=== PATIENT | female | born 1995 | race Caucasian/White ===

== ENCOUNTER 2018-12-09 18:04 | Emergency (ER) | payer OTHER ==
[2018-12-09 19:20] LABS: HIV (1/2) Antibody/Antigen Non-Reactive (NonReactive); HIV 1/2 INDEX 0.18 S/CO (<1.00); Hep C IgG Ab Non-Reactive (NonReactive); Hep C Index 0.21 S/CO (0-0.79)
[2018-12-09 20:48] LABS: HBSAB Concentration 11.45 mIU/mL
== END 2018-12-09 18:38 | disposition home or self-care (01) ==
LOC: ERS 18:04
DX: Z77.21 Contact with and (suspected) exposure to potentially hazardous body fluids (principal)
CPT/HCPCS: 36415; 82627; 83036; 83498; 84146; 84270; 84403; 84443; 86706; 86803; 87389; 99283

== ENCOUNTER 2019-04-08 12:29 | Outpatient (CLI) | payer OTHER ==
[2019-04-08 13:34] LABS: BHCG - Serum Negative (NEGATIVE); Pregs Control Background? CLEAR/WHITE (CLR/WHITE); Pregs Control Bar Appear? YES (CONTROL BAR)
[2019-04-08 13:35] LABS: Follow-up Chemistry Comp? YES
--- NOTE | 2019-04-08 14:16 | RAD ---
HYSTEROSALPINGOGRAM: HISTORY: Female with infertility associated with an ovulation. TECHNIQUE: The patient was counseled on the risks associated with an HSG prior to the examination. Confirmation of a negative with a negative serum exam. The patient completed her menstrual period on April 06, 2019. The patient is having no active bleeding prior to initiation of the HSG. The patient was then put in lithotomy position. A small speculum was placed. The cervix was identified. The cervix was cleansed with Betadine solution. Utilizing the sterile plastic probe, mult iple attempts were utilized to probe the endocervical canal. Approximately, less than 1 cm of the probe could be advanced into the endocervical canal. Multiple attempts were made to pass a catheter t hrough the endocervical canal into the endometrial canal that proved to be unsuccessful. There is some mild scarring seen along the external os collapsing the external os opening. FINDINGS: There are small phleboliths seen within lower left hemipelvis. There is a moderate amount of retained stool seen within the rectum and visualized colon. No acute osseous abnormality is evident. IMPRESSION: Aborted hysterosalpingogram. The HSG catheter could not be passed through the endocervical canal. Fin dings are concerning for cervical stenosis. The patient was counseled findings prior to leaving the radiology department. Transcribed Date/Time: 04/08/2019 2:40 PM
[2019-04-08] MEDS ORDERED: Iopamidol 300 61% 30 ML VIAL ONE (16:02)
== END 2019-04-08 12:30 | disposition home or self-care (01) ==
LOC: RAD 12:29
PROVIDERS: ATTEND Obstetrics & Gynecology
DX: N97.0 Female infertility associated with anovulation (principal)
CPT/HCPCS: 36415; 58340; 74740; 84703; Q9967

== ENCOUNTER 2019-04-11 10:28 | Outpatient (CLI) | payer OTHER ==
[2019-04-11] MEDS ORDERED: Iopamidol 300 61% 50 ML VIAL FS ONE (10:31)
[2019-04-11 11:38] LABS: BHCG - Serum Negative (NEGATIVE); Pregs Control Background? CLEAR/WHITE (CLR/WHITE); Pregs Control Bar Appear? YES (CONTROL BAR)
[2019-04-11 11:42] LABS: Follow-up Chemistry Comp? YES
--- NOTE | 2019-04-11 13:29 | RAD ---
Hysterosalpingogram HISTORY: Infertility. FINDINGS: After expanded procedure and answering all questions, uterine cervix was carefully exposed and prepped. HSG catheter was carefully placed and balloon inflated. Small amount of radiopaque contrast was carefully instilled into the uterine cavity with normal conto ur. Each fallopian tube opacified immediately with quick spill of contrast from each fallopian tube. Excess contrast was aspirated and catheter removed. Patient tolerated the procedure well and was dism issed in good condition. IMPRESSION: Patent bilateral fallopian tubes. No abnormalities
== END 2019-04-11 10:29 | disposition home or self-care (01) ==
LOC: RAD 10:28
PROVIDERS: ATTEND Obstetrics & Gynecology
DX: N97.0 Female infertility associated with anovulation (principal)
CPT/HCPCS: 36415; 58340; 74740; 84703

== ENCOUNTER 2020-01-07 09:49 | Inpatient (IN) | payer OTHER ==
[2020-01-10] MEDS ORDERED: Bupivacaine/Epinephrine 0.25% 30 ML VIAL ONE (09:39)
[2020-01-10] MEDS ORDERED: NS / Oxytocin 40 units/1000ml 1,000 ML IV PRN (20:07)
[2020-01-10] MEDS ORDERED: Ondansetron PF 4 MG/2 ML Vial IVP PRN (20:07)
[2020-01-10] MEDS ORDERED: Zolpidem Tartrate 5 MG TAB PO PRN (20:07)
[2020-01-10] MEDS ORDERED: Misoprostol 200 MCG TAB PR PRN (20:07)
[2020-01-10] MEDS ORDERED: Carboprost 250 MCG/ML AMP IM PRN (20:07)
[2020-01-10] MEDS ORDERED: Promethazine HCl 25 MG/ML VIAL IM PRN (20:07)
[2020-01-10] MEDS ORDERED: Diphenoxylate HCl/Atropine Tablet PO PRN ×2 (20:07)
[2020-01-10] MEDS ORDERED: Acetaminophen 500 MG TAB PO PRN (20:07)
[2020-01-10] MEDS ORDERED: Ibuprofen 800 MG TAB PO PRN (20:07)
[2020-01-10] MEDS ORDERED: Lidocaine 1% (PF) 30 ML VIAL SC PRN (20:07)
[2020-01-10] MEDS ORDERED: hydrALAZINE 20 MG/ML VIAL SLOW IVP PRN (20:07)
[2020-01-10] MEDS ORDERED: Methylergonovine 0.2 MG/ML VIAL IM PRN (20:07)
[2020-01-10] MEDS ORDERED: Butorphanol Tartrate 1 MG/ML VIAL SLOW IVP PRN (20:07)
[2020-01-10 20:23] VITALS: BMI 25.7
[2020-01-10] MEDS: Lactated Ringer's 1,000 ML IV SCH (20:25)
[2020-01-10] MEDS ORDERED: NS w/ Oxytocin 10 units 500 ML IV SCH ×2 (20:45)
[2020-01-10 20:46] LABS: Hemoglobin 12.1 g/dL (12.0-16.0); Mean Corpuscular HGB CONC 34.8 g/dL (32.0-36.0); Mean Corpuscular Volume 97.5 fL (78.0-98.0); Mean Platelet Volume 10.1 fL (7.4-10.4); Platelet Count 154 thou/uL (130-400); RBC Distribution Width 15.1 % (11.5-14.5); Red Blood Cell (RBC) Count 3.56 mill/uL (4.20-5.40); White Blood Cell (WBC) Count 12.1 thou/uL (4.8-10.8)
[2020-01-10] MEDS: Misoprostol 100 MCG TAB VAG SCH (20:47)
[2020-01-10 21:24] LABS: Syphilis Antibody Nonreactive (Nonreactive); Syphilis Antibody Index 0.03 S/CO (<1.00 Non-Reactive)
[2020-01-10 22:49] LABS: HBSAg Index 0.13 S/CO (0-0.99); Hep B Surf Ag Non-Reactive S/CO (NonReactive)
[2020-01-11] MEDS ORDERED: Terbutaline Sulfate 1 MG/ML VIAL ONE (00:40)
[2020-01-11] MEDS: Lactated Ringer's 1,000 ML IV SCH ×2 (01:25→04:13)
[2020-01-11] MEDS ORDERED: Fentanyl 4 mcg/Bup 0.1% Cadd 100 ML ONE (03:13)
[2020-01-11] MEDS: Misoprostol 100 MCG TAB VAG SCH ×3 (03:44→06:16)
[2020-01-11] MEDS ORDERED: Promethazine HCl 25 MG/ML VIAL IM PRN (03:54)
[2020-01-11] MEDS ORDERED: diphenhydrAMINE 50 MG/ML VIAL IVP PRN (03:54)
[2020-01-11] MEDS ORDERED: EPHEDRINE 25 MG/5 ML SYRINGE SLOW IVP PRN (03:54)
[2020-01-11] MEDS ORDERED: Ondansetron PF 4 MG/2 ML Vial IVP PRN (03:54)
[2020-01-11] MEDS ORDERED: Lactated Ringer's 500 ML IV PRN (03:54)
[2020-01-11] MEDS ORDERED: Acetaminophen 325 MG TAB PO PRN (03:54)
[2020-01-11] MEDS ORDERED: Naloxone HCl 0.4 mg/ml Vial IVP PRN ×2 (03:54)
[2020-01-11] MEDS ORDERED: Communication Order-Pharmacy FS SCH (04:00)
[2020-01-11] MEDS ORDERED: Fentanyl 4 mcg/Bupivacaine 0.1% Cassette 100 ML EPIDURAL SCH (04:00)
[2020-01-11 06:04] LABS: Actual Bicarbonate (HCO3a) 26.1 mEq/L (22-28); Base Excess (BEa) -3.1 mEq/L (-2.0 to +3.0)
--- NOTE | 2020-01-11 06:07 | PDOC.OPDEL ---
OB Operative/Delivery Note Delivery Dr/Surgeon: Jed Pre-Delivery Diagnosis: elective induction Procedure/Post Delivery Dx: spontaneous vaginal delivery Weeks gestation: 40 Anesthesia: epidural - Findings A Sex: male - 1 min: 4 - 5 min: 9 - Additional Findings/Plan Placenta delivered: spontaneous Repaired Obstetrical Laceration: right labial (Baby had shoulder cord. Resucitated with 30 sec bagging O2 for HR<100....) Estimated blood loss: 125ml
[2020-01-11] MEDS ORDERED: diphenhydrAMINE 25 MG CAP PO PRN (06:09)
[2020-01-11] MEDS ORDERED: traMADol HCl 50 MG TAB PO PRN (06:09)
[2020-01-11] MEDS ORDERED: Benzocaine-Menthol 82.5 ML CAN TOP PRN (06:09)
[2020-01-11] MEDS ORDERED: Preparation H Ointment 28 GM TUBE PR PRN (06:09)
[2020-01-11] MEDS ORDERED: Bisacodyl 10 MG SUPP PR PRN (06:09)
[2020-01-11] MEDS ORDERED: Adacel (T-DAP) 0.5 ML SYRINGE IM ONE (06:09)
[2020-01-11] MEDS ORDERED: hydrALAZINE 20 MG/ML VIAL SLOW IVP PRN (06:09)
[2020-01-11] MEDS ORDERED: Lanolin Ointment 7 GM TUBE TOP PRN (06:09)
[2020-01-11] MEDS ORDERED: Milk Of Magnesia 30 ML UDCUP PO PRN (06:09)
[2020-01-11] MEDS ORDERED: NS / Oxytocin 40 units/1000ml 1,000 ML IV SCH (06:15)
[2020-01-11] MEDS: Ferrous Sulfate 325 MG TAB PO SCH ×2 (10:31→18:05)
[2020-01-11] MEDS: Docusate Calcium (SURFAK) 240 MG CAP PO SCH ×2 (10:31→21:48)
[2020-01-11] MEDS: Prenatal Vitamin 1 TAB PO SCH (10:31)
[2020-01-11] MEDS: Ibuprofen 800 MG TAB PO SCH ×2 (14:20→21:49)
[2020-01-12] MEDS: Ibuprofen 800 MG TAB PO SCH ×3 (05:42→21:46)
--- NOTE | 2020-01-12 07:33 | PDOC.PP ---
Post Progress Note Post Day #: 1 Subjective: Working on . PO intake tolerated: yes Flatus: yes Ambulation: yes Vital Signs (12 hours) Temp Pulse Resp BP Pulse Ox 01/12/20 05:40 98.6 F 85 16 113/62 01/11/20 23:34 98.6 F 84 16 108/55 L 01/11/20 19:43 98.6 F 71 16 115/64 99 Weight Weight 150 lb Result Diagrams: 01/10/20 20:33 Additional Labs: Post Labs Blood Type O POSITIVE 01/10/20 20:33 Hep Bs Antigen Non-Reactive S/CO (NonReactive) 01/10/20 20:33 - Assessment/Plan Post day1..Doing well. training today . D/c for AM.
[2020-01-12] MEDS: Ferrous Sulfate 325 MG TAB PO SCH ×2 (07:47→16:02)
[2020-01-12] MEDS: Docusate Calcium (SURFAK) 240 MG CAP PO SCH ×2 (08:48→21:46)
[2020-01-12] MEDS: Prenatal Vitamin 1 TAB PO SCH (08:48)
[2020-01-13] MEDS: Ibuprofen 800 MG TAB PO SCH (06:58)
--- NOTE | 2020-01-13 08:46 | PDOC.PP ---
Post Progress Note Post Day #: 2 PO intake tolerated: yes Flatus: yes Ambulation: yes Weight Weight 150 lb - Physical Examination Abdominal: no distention, appropriately TTP Extremities: negative homans (B) Result Diagrams: 01/10/20 20:33 Additional Labs: Post Labs Blood Type O POSITIVE 01/10/20 20:33 Hep Bs Antigen Non-Reactive S/CO (NonReactive) 01/10/20 20:33 - Assessment/Plan post day 2...Doing well. discharge home. Has f/u in 6 weeks. OTC ibuprofen prn.
[2020-01-13] MEDS: Docusate Calcium (SURFAK) 240 MG CAP PO SCH (09:00)
[2020-01-13] MEDS: Prenatal Vitamin 1 TAB PO SCH (09:00)
[2020-01-13] MEDS: Ferrous Sulfate 325 MG TAB PO SCH (09:01)
[2020-01-13 11:04] VITALS: BP 116/66; TEMP 98
== END 2020-01-13 14:05 | disposition home or self-care (01) | DRG 807 ==
LOC: EDSTATUS 12:23 → L&D 01-10 19:44 → 3SW 01-11 09:05
PROVIDERS: ADMIT Obstetrics & Gynecology; ATTEND Obstetrics & Gynecology
PROC: 10E0XZZ Delivery of Products of Conception, External Approach (ICD-10-PCS; principal; 2020-01-11)
PROC: 0HQ9XZZ Repair Perineum Skin, External Approach (ICD-10-PCS; 2020-01-11)
DX: O69.2XX0 Labor and delivery complicated by other cord entanglement, with compression, not applicable or unspecified (principal); Z37.0 Single live birth; O70.0 First degree perineal laceration during delivery; Z3A.40 40 weeks gestation of pregnancy
CPT/HCPCS: 36415; 51702; 82805; 85027; 86780; 86850; 86900; 86901; 87340; 87635; J0595; J3105; U0003

== ENCOUNTER 2020-01-09 06:39 | Outpatient (CLI) | payer OTHER ==
[2020-01-09 18:12] LABS: SARS-CoV-2 MS2 Positive; SARS-CoV-2 N Gene Negative; SARS-CoV-2 S Gene Negative; SARS-CoV-2 orf1ab Negative
== END 2020-01-09 06:40 | disposition home or self-care (01) ==
LOC: ERS 06:39
PROVIDERS: ATTEND Obstetrics & Gynecology
DX: Z01.812 Encounter for preprocedural laboratory examination (principal); Z11.59 Encounter for screening for other viral diseases
CPT/HCPCS: 87635; U0003